=== PATIENT | male | born 1955 | race Caucasian/White ===

== ENCOUNTER 2020-06-04 11:44 | Day surgery (SDC) | payer MEDICARE, OTHER ==
[~2020-06-04] VITALS: Ht 175.3 cm; Wt 86.8 kg
[~2020-06-04 11:44] MED LIST: BENA20TA54 PO; BUPIVACAINE/PF 0.25% ONE; CLON1TAB11 PO; ERGO500017 PO; FENO134C PO; FENTANYL PF 100 MCG/2ML ONE; LEVO75TA5 PO; LOVA40TA2 PO; MIDAZOLAM 1 MG/ML, 2ML ONE; MODA200T27 PO; POTA20TA89 PO; SERT100T32 PO; TAMS-11 PO; testosterone IM
[2020-06-04 12:34] VITALS: BP 128/87
[2020-06-04] MEDS ORDERED: CHLORHEXIDINE 15 ML UDC ONE (12:44)
[2020-06-04] MEDS ORDERED: CHLORHEXIDINE 15 ML UDC MM ONE (13:00)
[2020-06-04] MEDS ORDERED: LACTATED RINGERS 1,000 ML IV SCH (13:00)
[2020-06-04] MEDS ORDERED: ONDANSETRON 2MG/ML, 2ML ONE (13:05)
[2020-06-04] MEDS ORDERED: GLYCOPYRROLATE 0.2MG/1ML, 5ML ONE (13:05)
[2020-06-04] MEDS ORDERED: ROCURONIUM 10 MG/ML,10ML ONE (13:05)
[2020-06-04] MEDS ORDERED: NEOSTIGMINE 1 MG/ML, 10ML ONE (13:05)
[2020-06-04] MEDS ORDERED: EPINEPHRINE 1 MG/ML, 1ML ONE (13:05)
[2020-06-04] MEDS ORDERED: PHENYLEPHRINE 10 MG/ML ONE (13:05)
[2020-06-04] MEDS ORDERED: EPHEDRINE 50 MG/ML, 1ML ONE (13:05)
[2020-06-04] MEDS ORDERED: PROPOFOL 10 MG/ML, 20ML ONE (13:05)
[2020-06-04] MEDS ORDERED: CEFAZOLIN 1,000 MG ONE (13:05)
[2020-06-04] MEDS ORDERED: DEXAMETHASONE 4 MG/ML, 1ML ONE (13:05)
[2020-06-04] MEDS ORDERED: OXYcodone 5 MG/5 ML ORAL.SOL UDC PO PRN (14:00)
[2020-06-04] MEDS ORDERED: METHOCARBAMOL 1,000 MG in DEXTROSE 5% 100 ML IV PRN (14:00)
[2020-06-04] MEDS ORDERED: FENTANYL PF 100 MCG/2ML IV PRN (14:00)
[2020-06-04] MEDS ORDERED: PROMETHAZINE 25 MG/ML, 1ML IVPush PRN (14:00)
[2020-06-04] MEDS ORDERED: PROMETHAZINE 25 MG SUPP PR PRN (14:00)
[2020-06-04] MEDS ORDERED: ACETAMINOPHEN 325 MG TABLET PO PRN (14:00)
[2020-06-04] MEDS ORDERED: HYDROmorphone 1 MG/ML, 1ML INJ IVPush PRN (14:00)
[2020-06-04] MEDS ORDERED: ONDANSETRON 2MG/ML, 2ML IVPush PRN (14:00)
== END 2020-06-04 16:38 | disposition home or self-care (01) ==
LOC: OUT 11:44
PROVIDERS: ATTEND Orthopaedic Surgery
DX: S46.011A Strain of muscle(s) and tendon(s) of the rotator cuff of right shoulder, initial encounter (principal); M94.211 Chondromalacia, right shoulder; M75.51 Bursitis of right shoulder; I10 Essential (primary) hypertension; F12.90 Cannabis use, unspecified, uncomplicated; W19.XXXA Unspecified fall, initial encounter; Y93.89 Activity, other specified; Y92.89 Other specified places as the place of occurrence of the external cause; Y99.8 Other external cause status; Z20.828 Contact with and (suspected) exposure to other viral communicable diseases; Z79.899 Other long term (current) drug therapy; Z72.89 Other problems related to lifestyle; Z98.890 Other specified postprocedural states; Z82.49 Family history of ischemic heart disease and other diseases of the circulatory system
CPT/HCPCS: 29826; 29827; 29828; 64415; 87635; 93005; C1713; J0171; J0690; J1100; J2250; J2370; J2405; J2704; J2710; J3010